=== PATIENT | male | born 1975 | race American Indian/Alaskan Native ===

== ENCOUNTER 2021-12-25 13:58 | Emergency (ER) | payer SELFPAY ==
[2021-12-25 15:20] LABS: Basophils % (Auto) 0.1 % (0.0-1.8); Hematocrit 39.8 % (35.5-45.6); Hemoglobin 12.7 gm/dl (11.8-15.2); Lymphocytes % (Auto) 8.6 % (13.4-35.0); Mean Corpuscular HGB Conc 32 % (32-34); Mean Corpuscular Volume 82 fl (84-94); Monocytes % (Auto) 8.7 % (0.0-7.3); Red Blood Count 4.87 M/mm3 (3.65-5.03); Red Cell Distribution Width 14.5 % (13.2-15.2)
[2021-12-25 15:49] LABS: Albumin 4.4 g/dL (3.9-5); Calcium 9.5 mg/dL (8.4-10.2)
[2021-12-25] MEDS ORDERED: SODIUM CHLORIDE 0.9% 1000 ML 1,000 ML IV ONE (15:56)
[2021-12-25 16:02] LABS: Platelet Count 93 K/mm3 (140-440)
[2021-12-25] MEDS ORDERED: POTASSIUM CHLORIDE ER 20 MEQ TAB PO ONE (16:08)
--- NOTE | 2021-12-25 16:35 | XRay Report ---
CHEST 1 VIEW 12/25/2021 3:27 PM INDICATION / CLINICAL INFORMATION: Syncope. COMPARISON: None available. FINDINGS: SUPPORT DEVICES: None. HEART / MEDIASTINUM: No significant abnormality. LUNGS / PLEURA: A calcified granuloma is seen along the upper left lung. The lungs are otherwise demetrio r. No significant pleural effusion. No pneumothorax. ADDITIONAL FINDINGS: No significant additional findings. IMPRESSION: 1. No acute abnormality of the chest. Signer Name: Clinton Dunham MD Signed: 12/25/2021 4:31 PM Workstation Name: [id number]
[2021-12-25 16:46] LABS: INR 0.91 (0.87-1.13)
[2021-12-25] MEDS ORDERED: KETOROLAC 30 MG/1 ML INJ IV ONE (16:46)
--- NOTE | 2021-12-25 16:51 | Cat Scan Report ---
CT head/brain wo con INDICATION: Syncope. TECHNIQUE: Routine CT head without contrast. All CT scans at this location are performed using CT dos e reduction for ALARA by means of automated exposure control. COMPARISON: None. FINDINGS: BRAIN / INTRACRANIAL CONTENTS: No acute hemorrhage, mass effect, midline shift, or hydrocephalus. No appreciable acute large territorial or lacunar infarct. No chronic infarct or focal atrophy. Normal b rain volume and ventricular/sulcal size for age. ORBITS: No significant abnormality of visualized orbits. SINUSES / MASTOIDS: No significant abnormality of visualized sinuses and mastoid air cells. ADDITIONAL FINDINGS: None. IMPRESSION: 1. No acute intracranial abnormality. Signer Name: Osman Beltran MD Signed: 12/25/2021 4:46 PM Workstation Name: [id number]
--- NOTE | 2021-12-25 17:47 | Emergency Department Report ---
ED Dizziness HPI - General Chief Complaint: Syncope Stated Complaint: SEIZURE/PASSED OUT Time Seen by Provider: 12/25/21 15:45 Source: patient, EMS Mode of arrival: Stretcher Limitations: No Limitations - History of Present Illness Initial Comments: PT ARRIVING FROM WORK, POSSIBLE SYNCOPAL EPISODE/SEIZURE. [employer] WITNESSED "JERKING". DENIES SEIZURE HX. PT RECEIVED IV FLUIDS EN ROUTE. NOW A&OX4. LETHARGIC. Complaint: dizziness, near syncope -: Sudden, hour(s) Timing: sudden onset Description: sense of movement History of Same: Yes History of Trauma: No Severity: mild Associated Symptoms: denies: denies other symptoms, ataxia, chest pain, conf usion, cough - Related Data Home Medications Medication Instructions Recorded Confirmed Last Taken No Known Home Medications [No 12/25/21 12/25/21 Unknown Reported Home Medications] Allergies Allergy/AdvReac Type Severity Reaction Status Date / Time lisinopril AdvReac Angioedema Verified 12/25/21 14:13 ED Review of Systems ROS: Stated complaint: SEIZURE/PASSED OUT Other details as noted in HPI Constitutional: denies: chills, fever Eyes: denies: eye pain, eye discharge, vision change ENT: denies: ear pain, throat pain Respiratory: denies: cough, shortness of breath, wheezing Cardiovascular: denies: chest pain, palpitations Endocrine: no symptoms reported Gastrointestinal: denies: abdominal pain, nausea, diarrhea Genitourinary: denies: urgency, dysuria Musculoskeletal: denies: back pain, joint swelling, arthralgia Skin: denies: rash, lesions Neurological: denies: headache, weakness, paresthesias Psychiatric: denies: anxiety, depression Hematological/Lymphatic: denies: easy bleeding, easy bruising ED Past Medical Hx - Past Medical History Previous Medical History?: No Hx Hypertension: No Hx CVA: No - Social History Smoking Status: Never Smoker Substance Use Type: None - Medications Home Medications: Home Medications Medication Instructions Recorded Confirmed Last Taken Type No Known Home Medications [No 12/25/21 12/25/21 Unknown History Reported Home Medications] ED Physical Exam - General Limitations: No Limitations General appearance: alert, in no apparent distress - Head Head exam: Present: atraumatic, normocephalic - Eye Eye exam: Present: normal appearance - ENT ENT exam: Present: mucous membranes moist - Neck Neck exam: Present: normal inspection - Respiratory Respiratory exam: Present: normal lung sounds bilaterally. Absent: respiratory distress - Cardiovascular Cardiovascular Exam: Present: regular rate, normal rhythm. Absent: systolic murmur, diastolic murmur, rubs, gallop - GI/Abdominal GI/Abdominal exam: Present: soft, normal bowel sounds - Rectal Rectal exam: Present: deferred - Extremities Exam Extremities exam: Present: normal inspection - Back Exam Back exam: Present: normal inspection - Neurological Exam Neurological exam: Present: alert, oriented X3 - Psychiatric Psychiatric exam: Present: normal affect, normal mood - Skin Skin exam: Present: warm, dry, intact, normal color. Absent: rash ED Course Vital Signs 12/25/21 12/25/21 14:09 15:07 Temperature 99.1 F Pulse Rate 100 H 86 Respiratory 18 Rate Blood Pressure 110/82 135/87 [Left] O2 Sat by Pulse 97 97 Oximetry ED Medical Decision Making - Lab Data Result diagrams: 12/25/21 14:42 12/25/21 14:42 - EKG Data -: EKG Interpreted by Hi EKG shows normal: sinus rhythm Rate: normal - EKG Data Interpretation: nonspecific ST-T wave iban - Radiology Data Radiology results: report reviewed, image reviewed - Medical Decision Making work up showed : hypokalemia : corrected renal impairment : fluids given head ct negative headache imrpoved history of the same Critical care attestation.: If time is entered above; I have spent that time in minutes in the direct care of this critically ill patient, excluding procedure time. ED Disposition Clinical Impression: Dizziness, Headache Disposition: 01 HOME / SELF CARE / HOMELESS Is pt being admited?: No Does the pt Need Aspirin: No Condition: Stable Instructions: Dizziness Referrals: BREANNA JAQUEZ MD [Primary Care Provider] - 3-5 Days
[2021-12-26] MEDS ORDERED: LIDOCAINE 2%/EPINEPHRINE 1:100,000 VIAL (20 ML) INFILTRATI ONE (03:08)
[2021-12-26] MEDS ORDERED: SODIUM CHLORIDE 0.9% IRR 500 ML BOTTLE IR ONE (03:08)
[2021-12-26] MEDS ORDERED: TETANUS,DIPH,PERTUSS(ACELL) VACCINE 0.5 ML SYRINGE IM ONE (04:02)
--- NOTE | 2021-12-26 04:02 | Event Note ---
Date: 12/26/21 I was informed by nursing that the patient had been discharged however he still has an open laceration to the back of his scalp. This was anesthetized and cleaned by myself and 6 kelvin were placed prior to discharge Laceration Repair Note Location: Left occipital scalp Wound prepared with Betadine The wound was irrigated with normal saline There was no foreign body present The skin was repaired with 6 kelvin The wound was approximately 5cm in length The wound had good approximation The wound had good hemostasis Wound care instructions given to the patient verbally Sutures/kelvin removal in 7 days Laceration type: Simple/intermediate with dirt or foreign body There were no complications There were no complications
[2021-12-26] MEDS ORDERED: BACITRACIN ZINC OINT 28.4 GM TP ONE (04:03)
[2021-12-26 04:35] VITALS: BP 140/88
--- NOTE | 2021-12-27 09:40 | Electrocardiograph Report ---
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
== END 2021-12-26 04:36 | disposition home or self-care (01) ==
LOC: ED 13:58
DX: R42 Dizziness and giddiness (principal); R51.9 Headache, unspecified; Z91.09 Other allergy status, other than to drugs and biological substances
CPT/HCPCS: 36415; 70450; 71045; 80053; 84484; 85025; 85610; 90471; 90715; 93005; 96361; 96374; 99285; J1885; J3490; J7030

== ENCOUNTER 2022-01-03 19:56 | Emergency (ER) | payer SELFPAY ==
[2022-01-03] MEDS ORDERED: ASPIRIN 325 MG TAB PO ONE (20:40)
--- NOTE | 2022-01-03 21:07 | XRay Report ---
CHEST 2 VIEWS INDICATION: CHEST PAIN. COMPARISON: 12/25/2021 FINDINGS: SUPPORT DEVICES: None. HEART: Within normal limits. LUNGS/PLEURA: No acute air space or interstitial disease. No pneumothorax. ADDITIONAL FINDINGS: None. IMPRESSION: 1. No acute findings. Signer Name: Garry Huitron MD Signed: 01/03/2022 9:03 PM Workstation Name: [id number]
[2022-01-03 21:34] LABS: Alanine Aminotransferase 46 units/L (7-56); Albumin 4.4 g/dL (3.9-5); Blood Urea Nitrogen 7 mg/dL (9-20); Calcium 8.6 mg/dL (8.4-10.2); Hemolysis Index 7
[2022-01-03 21:47] LABS: BUN/Creatinine Ratio 12
[2022-01-03 21:54] LABS: Hemoglobin 12.2 gm/dl (11.8-15.2); Mean Corpuscular HGB Conc 32 % (32-34); Mean Corpuscular Volume 82 fl (84-94); Platelet Count 600 K/mm3 (140-440); Red Blood Count 4.63 M/mm3 (3.65-5.03); Red Cell Distribution Width 15.5 % (13.2-15.2)
[2022-01-03 23:56] LABS: Basophils % (Manual) 0 % (0.0-1.8); Total Cells Counted 100
[2022-01-03 23:57] LABS: Anisocytosis 1+; Platelet Estimate Consistent w Auto
--- NOTE | 2022-01-04 11:56 | Emergency Department Report ---
ED Chest Pain HPI - General Chief Complaint: Chest Pain Stated Complaint: GENERAL ILLNESS,HERE 3 DAYS AGO Source: patient Mode of arrival: Ambulatory Limitations: No Limitations - History of Present Illness MD Complaint: chest pain (left-sided chest pain), other (occipital scalp kelvin removal) -: days(s) (7) Onset: awoke with symptoms Pain Location: left chest Pain Radiation: none Severity: mild Severity scale (0 -10): 2 Quality: aching, pressure Consistency: intermittent Improves With: nothing Worsens With: exertion, movement re: denies: nausea, vomting, diaphoresis, dyspnea, sense of impending doom Other Symptoms: cough. denies: fever, syncope, rash, acid taste in mouth, leg swelling, palpitations Treatments Prior to Arrival: none - Related Data On Oral Contraceptives: No Previous Rx's Medication Instructions Recorded Last Taken Type Naproxen 500 mg PO Q12H PRN #30 tab 01/04/22 Unknown Rx amLODIPine 10 mg PO DAILY #30 tab 01/04/22 Unknown Rx Allergies Allergy/AdvReac Type Severity Reaction Status Date / Time lisinopril AdvReac Angioedema Verified 12/25/21 14:13 Heart Score - HEART Score History: Slightly suspicious EKG: Normal Age: 45-65 Risk factors: 1-2 risk factors Troponin: < normal limit HEART Score: 2 - EKG Read Time Time EKG Completed: 12:11 EKG Read Time: 12:15 - Critical Actions Critical Actions: 0-3 pts:0.9-1.7%risk of adverse cardiac event.Candidate for discharge ED Review of Systems ROS: Stated complaint: GENERAL ILLNESS,HERE 3 DAYS AGO Other details as noted in HPI Constitutional: denies: chills, fever Eyes: denies: eye pain, eye discharge, vision change ENT: denies: ear pain, throat pain Respiratory: denies: cough, shortness of breath, wheezing Cardiovascular: chest pain (left-sided). denies: palpitations Endocrine: no symptoms reported Gastrointestinal: denies: abdominal pain, nausea, vomiting, diarrhea, hematemesis Genitourinary: denies: urgency, dysuria Musculoskeletal: denies: back pain, joint swelling, arthralgia Skin: denies: rash, lesions Neurological: denies: headache, weakness, paresthesias Psychiatric: denies: anxiety, depression Hematological/Lymphatic: denies: easy bleeding, easy bruising ED Past Medical Hx - Past Medical History Previous Medical History?: Yes Hx Hypertension: Yes Hx CVA: No Hx Asthma: Yes - Social History Smoking Status: Never Smoker Substance Use Type: Alcohol - Medications Home Medications: Home Medications Medication Instructions Recorded Confirmed Last Taken Type Naproxen 500 mg PO Q12H PRN #30 tab 01/04/22 Unknown Rx amLODIPine 10 mg PO DAILY #30 tab 01/04/22 Unknown Rx ED Physical Exam - General Limitations: No Limitations General appearance: alert, in no apparent distress - Head Head exam: Present: atraumatic, normocephalic, normal inspection, other (healed occipital scalp laceration with kelvin in place) - Eye Eye exam: Present: normal appearance, PERRL, EOMI Pupils: Present: normal accommodation - ENT ENT exam: Present: normal exam, normal orophraynx, mucous membranes moist, TM's normal bilaterally, normal external ear exam - Neck Neck exam: Present: normal inspection, full ROM. Absent: tenderness - Respiratory Respiratory exam: Present: normal lung sounds bilaterally. Absent: respiratory distress, wheezes, rales, rhonchi, chest wall tenderness, accessory muscle use, decreased breath sounds, prolonged expiratory - Cardiovascular Cardiovascular Exam: Present: regular rate, normal rhythm, normal heart sounds. Absent: systolic murmur, diastolic murmur, rubs, gallop - GI/Abdominal GI/Abdominal exam: Present: soft, normal bowel sounds. Absent: tenderness, guarding, rebound, rigid, hyperactive bowel sounds, hypoactive bowel sounds, organomegaly - Extremities Exam Extremities exam: Present: normal inspection, full ROM, normal capillary refill. Absent: tenderness - Back Exam Back exam: Present: normal inspection, full ROM. Absent: tenderness, CVA tenderness (R), CVA tenderness (L), muscle spasm, paraspinal tenderness, vert ebral tenderness - Neurological Exam Neurological exam: Present: alert, oriented X3, CN II-XII intact, normal gait, reflexes normal - Psychiatric Psychiatric exam: Present: normal affect, normal mood - Skin Skin exam: Present: warm, dry, intact, normal color, other (healed occipital scalp laceration with kelvin in place). Absent: rash ED Course Vital Signs 01/03/22 20:06 Temperature 98.6 F Pulse Rate 96 H Respiratory 18 Rate Blood Pressure 139/93 O2 Sat by Pulse 92 Oximetry JOHN score - John Score Age > 65: (0) No Aspirin use within the Past 7 Days: (0) No 3 or more CAD Risk Factors: (0) No 2 or more Angina events in past 24 hrs: (0) No Known CAD with more than 50% Stenosis: (0) No Elevated Cardiac Markers: (0) No ST Deviation Greater than 0.5mm: (0) No JOHN Score: 0 ED Medical Decision Making - Lab Data Result diagrams: 01/03/22 20:59 01/03/22 20:59 - EKG Data EKG shows normal: sinus rhythm Rate: normal - EKG Data Interpretation: normal EKG 01/04/22 12:42 EKG shows normal sinus rhythm with a ventricular rate of 84 bpm and nonspecific T wave abnormalities in anterolateral leads. - Radiology Data Radiology results: report reviewed, image reviewed [facility] [address] [place] [address] XRay Report Signed Patient: ANGELA TOLBERT MR#: [id number] 0 : 1975 Acct:[id number] Age/Sex: 46 / M ADM Date: 01/03/22 Loc: ED Attending Dr: Ordering Physician: ROCAEL CURTIS MD Date of Service: 01/03/22 Procedure(s): XR chest routine 2V Accession Number(s): [id number] cc: ED MD EVER Fluoro Time In Minutes: CHEST 2 VIEWS INDICATION: CHEST PAIN. COMPARISON: 12/25/2021 FINDINGS: SUPPORT DEVICES: None. HEART: Within normal limits. LUNGS/PLEURA: No acute air space or interstitial disease. No pneumothorax. ADDITIONAL FINDINGS: None. IMPRESSION: 1. No acute findings. Signer Name: Garry Huitron MD Signed: 01/03/2022 9:03 PM Workstation Name: [id number] Transcribed By: JW Dictated By: Garry Huitron MD Electronically Authenticated By: Garry Huitron MD Signed Date/Time: 01/03/222102 DD/ 02 TD/TT: Critical care attestation.: If time is entered above; I have spent that time in minutes in the direct care of this critically ill patient, excluding procedure time. ED Disposition Clinical Impression: Nonspecific chest pain, Removal of kelvin, Uncontrolled stage 2 hypertension Disposition: HOME / SELF CARE / HOMELESS Is pt being admited?: No Does the pt Need Aspirin: No Condition: Stable Instructions: Wound Closure Removal, Care After, Nonspecific Chest Pain, Adult, [id number], Hypertension, Adult, [id number], Hypertension (ED) Additional Instructions: All lab test results were reviewed and are all nonactionable including initial, 3 and 6-hour troponin levels. Chest x-ray showed no acute cardiopulmonary abnormalities or pneumonitis. EKG shows normal sinus rhythm with a ventricular rate of 84 bpm, with no abnormalities. Therefore take medication with food, drink plenty of fluids, follow-up with your primary care physician in 7 to 10 days for reevaluation. Return to the ED immediately if symptoms get worse. Consider increasing your fluid intake and avoid heavy alcohol consumption. Prescriptions: amLODIPine 10 mg PO DAILY #30 tab Naproxen 500 mg PO Q12H PRN #30 tab PRN Reason: Pain , Severe (7-10) Referrals: [facility] [Provider Group] - 3-5 Days Time of Disposition: 11:59 Print Language: NORWEGI[place]
[2022-01-04 13:25] VITALS: BP 130/80
== END 2022-01-04 13:25 | disposition home or self-care (01) ==
LOC: ED 19:56
DX: R07.9 Chest pain, unspecified (principal); Z48.02 Encounter for removal of sutures; I10 Essential (primary) hypertension; J45.909 Unspecified asthma, uncomplicated; Z91.09 Other allergy status, other than to drugs and biological substances; Z79.899 Other long term (current) drug therapy
CPT/HCPCS: 36415; 71046; 80053; 84484; 85007; 85025; 93005; 99283